=== PATIENT | male | born 1990 | race American Indian/Alaskan Native ===

== ENCOUNTER 2019-02-22 17:35 | Emergency (ER) | payer SELFPAY ==
[2019-02-22 18:55] LABS: Basophils # (Auto) 0.1 K/mm3 (0.0-0.1); Basophils % (Auto) 1.1 % (0.0-1.8); Eosinophils # (Auto) 0.2 K/mm3 (0.0-0.4); Hematocrit 47.2 % (35.5-45.6); Hemoglobin 15.7 gm/dl (11.8-15.2); Lymphocytes # (Auto) 2.1 K/mm3 (1.2-5.4); Lymphocytes % (Auto) 28.5 % (13.4-35.0); Mean Corpuscular HGB Conc 33 % (32-34); Mean Corpuscular Volume 84 fl (84-94); Monocytes # (Auto) 0.9 K/mm3 (0.0-0.8); Platelet Count 237 K/mm3 (140-440); Red Blood Count 5.63 M/mm3 (3.65-5.03); Red Cell Distribution Width 14.5 % (13.2-15.2)
[2019-02-22 19:09] LABS: INR 0.9 (0.87-1.13)
[2019-02-22 19:10] LABS: Partial Thromboplastin Time 26.9 Sec. (24.2-36.6)
[2019-02-22 19:13] LABS: Alanine Aminotransferase 19 units/L (7-56); BUN/Creatinine Ratio 12; Blood Urea Nitrogen 11 mg/dL (9-20); Calcium 9.2 mg/dL (8.4-10.2); Hemolysis Index 6
[2019-02-22] MEDS ORDERED: ALBUTEROL 2.5 MG/3 ML NEBU IH ONE (19:22)
[2019-02-22] MEDS ORDERED: methylPREDNISolone Sod Succinate 125 MG/2 ML INJ IV ONE (19:22)
[2019-02-22] MEDS ORDERED: IPRATROPIUM 0.02% NEBU 2.5 ML IH ONE (19:22)
--- NOTE | 2019-02-22 19:23 | Cat Scan Report ---
CT head/brain wo con INDICATION / CLINICAL INFORMATION: 28 years Male; left sided weakness. TECHNIQUE: Routine CT head without contrast. All CT scans at this location are performed using CT dos e reduction for ALARA by means of automated exposure control. COMPARISON: None. FINDINGS: BRAIN / INTRACRANIAL CONTENTS: The brain demonstrate appropriate attenuation. The ventricular system is within normal limits in size and configuration. There is no CT evidence of acute intracranial hemo rrhage or significant mass effect. ORBITS: No significant abnormality of visualized orbits. SINUSES / MASTOIDS: There is focal opacification involving the right sphenoid and visualized right ma xillary sinuses. CRANIOCERVICAL JUNCTION: No significant abnormality. ADDITIONAL FINDINGS: None. IMPRESSION: 1. There is no CT evidence of acute intracranial process. Signer Name: Bonifacio Blanco MD Signed: 02/22/2019 7:18 PM Workstation Name: [id number]
--- NOTE | 2019-02-22 19:29 | Emergency Department Report ---
ED General Adult HPI - General Chief complaint: Neuro Symptoms/Deficit Stated complaint: DIZZY NUMBNESS Time Seen by Provider: 02/22/19 18:19 Source: EMS Mode of arrival: Stretcher Limitations: No Limitations - History of Present Illness Initial comments: Patient is a 28-year-old male who presents the emergency room with complaints of lightheadedness that began today while at work. 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 He states he then broke out in the cool clammy sweat. Patient states he then felt tingling in his bilateral hands, bilateral feet, and in his tongue. States that for the last 4 days he has had weakness in his left arm and left leg. pt is ambulatory without difficulty. He states that also for the last 2 days he has had chest tightness, shortness of breath, dry cough. Patient states that he has a history of asthma but states he has not been able to afford his medications. He denies any nausea, vomiting, leg swelling, headache, vision changes, recent illness. He denies any past medical history allergies medicatio ns. He denies any family history of cardiac issues or DVT/PE. Severity scale (0 -10): 0 - Related Data Previous Rx's Medication Instructions Recorded Last Taken Type ALBUTEROL Inhaler (OR & NICU) 2 puff IH QID PRN #8.5 gram 02/22/19 Unknown Rx [ProAir HFA Inhaler] Albuterol Sulfate [Albuterol 0.63% 0.63 mg IH TID PRN #1 box 02/22/19 Unknown Rx NEBS] Nebulizer and Compressor [Easy Air 1 each MC TID #1 each 02/22/19 Unknown Rx Compressor Nebulizer] predniSONE [Deltasone] 40 mg PO QDAY 5 Days #10 tab 02/22/19 Unknown Rx Allergies Allergy/AdvReac Type Severity Reaction Status Date / Time No Known Allergies Allergy Unverified 02/22/19 19:08 ED Review of Systems ROS: Stated complaint: DIZZY NUMBNESS Other details as noted in HPI Comment: All other systems reviewed and negative ED Past Medical Hx - Social History Smoking Status: Former Smoker Substance Use Type: None - Medications Home Medications: Home Medications Medication Instructions Recorded Confirmed Last Taken Type ALBUTEROL Inhaler (OR & NICU) 2 puff IH QID PRN #8.5 gram 02/22/19 Unknown Rx [ProAir HFA Inhaler] Albuterol Sulfate [Albuterol 0.63% 0.63 mg IH TID PRN #1 box 02/22/19 Unknown Rx NEBS] Nebulizer and Compressor [Easy Air 1 each MC TID #1 each 02/22/19 Unknown Rx Compressor Nebulizer] predniSONE [Deltasone] 40 mg PO QDAY 5 Days #10 tab 02/22/19 Unknown Rx ED Physical Exam - General Limitations: No Limitations General appearance: alert, in no apparent distress - Head Head exam: Present: atraumatic, normocephalic - Eye Eye exam: Present: normal appearance, PERRL, EOMI - ENT ENT exam: Present: mucous membranes moist - Respiratory Respiratory exam: Present: wheezes (bilaterally), rhonchi (bilaterally, left greater than right). Absent: respiratory distress, rales, stridor, chest wall tenderness, accessory muscle use, decreased breath sounds, prolonged expiratory - Cardiovascular Cardiovascular Exam: Present: regular rate, normal rhythm, normal heart sounds. 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 on the left but the rest of his muscular exam on the LUE is 5/5 strength, 5/5 strength in the LLE, no pronator drift, pt is able to hold up each leg for 30 seconds each without difficulty, sensation intact throughout) - Expanded Neurological Exam Expanded Patient oriented to: Present: person, place, time Speech: Present: fluid speech Cranial nerves: EOM's Intact: Normal, Gag Reflex: Normal Cerebellar function: Finger to Nose: Normal, Heel to [place]: Normal Upper motor neuron: Pronator Drift: Normal Sensory exam: Upper Extremity Light Touch: Normal, Upper Extremity Pin Prick: Normal, Upper Extremity Temperature: Normal, UE 2 Point Discrimination: Normal, Lower Extremity Light Touch: Normal, Lower Extremity Pin Prick: Normal, Lower Extremity Temperature: Normal, LE 2 Point Discrimination: Normal Best Eye Response (June): (4) open spontaneously Best Motor Response (Greene): (6) obeys commands Best Verbal Response (Greene): (5) oriented June Total: 15 - Psychiatric Psychiatric exam: Present: normal affect, normal mood - Skin Skin exam: Present: warm, dry, intact ED Course Vital Signs 02/22/19 02/22/19 02/22/19 18:07 18:16 19:45 Temperature 98.1 F Pulse Rate 69 64 60 Pulse Rate [ Posterior Throughout] Respiratory 21 15 15 Rate Respiratory Rate [Posterior Throughout] Blood Pressure 120/64 124/88 Blood Pressure 121/71 [Right] O2 Sat by Pulse 98 99 Oximetry 02/22/19 02/22/19 02/22/19 20:00 20:38 23:17 Temperature Pulse Rate 77 Pulse Rate [ 61 Posterior Throughout] Respiratory 16 Rate Respiratory 20 Rate [Posterior Throughout] Blood Pressure 124/88 Blood Pressure 133/78 [Right] O2 Sat by Pulse 99 99 Oximetry ED Medical Decision Making - Lab Data Result diagrams: 02/22/19 18:44 02/22/19 18:44 Lab Results 02/22/19 02/22/19 02/22/19 Range/Units 18:44 18:44 18:44 WBC 7.4 (4.5-11.0) K/mm3 RBC 5.63 H (3.65-5.03) M/mm3 Hgb 15.7 H (11.8-15.2) gm/dl Hct 47.2 H (35.5-45.6) % MCV 84 (84-94) fl MCH 28 (28-32) pg MCHC 33 (32-34) % RDW 14.5 (13.2-15.2) % Plt Count 237 (140-440) K/mm3 Lymph % (Auto) 28.5 (13.4-35.0) % Faulkner % (Auto) 12.0 H (0.0-7.3) % Eos % (Auto) 2.0 (0.0-4.3) % Baso % (Auto) 1.1 (0.0-1.8) % Lymph # 2.1 (1.2-5.4) K/mm3 Faulkner # 0.9 H (0.0-0.8) K/mm3 Eos # 0.2 (0.0-0.4) K/mm3 Baso # 0.1 (0.0-0.1) K/mm3 Seg Neutrophils % 56.4 (40.0-70.0) % Seg Neutrophils # 4.2 (1.8-7.7) K/mm3 PT 12.1 L (12.2-14.9) Sec. INR 0.90 (0.87-1.13) APTT 26.9 (24.2-36.6) Sec. D-Dimer 247.48 H (0-234) ng/mlDDU Sodium 139 (137-145) mmol/L Potassium 3.9 (3.6-5.0) mmol/L Chloride 103.3 (98-107) mmol/L Carbon Dioxide 23 (22-30) mmol/L Anion Gap 17 mmol/L BUN 11 (9-20) mg/dL Creatinine 0.9 (0.8-1.5) mg/dL Estimated GFR > 60 ml/min BUN/Creatinine Ratio 12 % Glucose 87 (75-100) mg/dL Calcium 9.2 (8.4-10.2) mg/dL Phosphorus 3.30 (2.5-4.5) mg/dL Magnesium 2.10 (1.7-2.3) mg/dL Total Bilirubin 0.40 (0.1-1.2) mg/dL AST 15 (5-40) units/L ALT 19 (7-56) units/L Alkaline Phosphatase 82 (35-129) units/L Troponin T < 0.010 (0.00-0.029) ng/mL Total Protein 7.1 (6.3-8.2) g/dL Albumin 4.0 (3.9-5) g/dL Albumin/Globulin Ratio 1.3 % - Radiology Data Radiology results: report reviewed CTA CHEST WITH IV CONTRAST INDICATION: CP, SOB, elevated d-dimer. TECHNIQUE: Axial CT images were obtained through the chest after injection of 100 mL Omnipaque 350 IV contrast. 3 plane MIP reconstructions were produced. All CT scans at this location are performed using CT dose reduction for ALARA by means of automated exposure control. COMPARISON: None available. FINDINGS: Pulmonary Arteries: No pulmonary emboli. Lungs: No significant abnormality. Trachea and Bronchi: No significant abnormality. Heart and Pericardium: No significant abnormality. Vasculature: No significant abnormality. Lymphatics: No lymphadenopathy. Additional Findings: None. Upper Abdomen: No acute findings. Skeletal Structures: No significant osseous abnormality. IMPRESSION: 1. No CT evidence for pulmonary embolism. 2. No acute findings. Signer Name: Tarun Sultana MD Signed: 02/22/2019 8:27 PM Workstation Name: [id number] Transcribed By: ALEKSANDAR Dictated By: Tarun Sultana MD Electronically Authenticated By: Tarun Sultana MD Signed Date/Time: 02/22/192026 DD/ 24 TD/TT: CHEST 2 VIEWS INDICATION / CLINICAL INFORMATION: CP, SOB. COMPARISON: None available. FINDINGS: SUPPORT DEVICES: None. HEART / MEDIASTINUM: No significant abnormality. LUNGS / PLEURA: No significant pulmonary or pleural abnormality. .No pneumothorax. ADDITIONAL FINDINGS: No significant additional findings. IMPRESSION: 1. No acute findings. Signer Name: Irwin Mei MD Signed: 02/22/2019 7:29 PM Workstation Name: [id number] Transcribed By: SS Dictated By: Irwin Mei MD Electronically Authenticated By: Irwin Mei MD Signed Date/Time: 02/22/191928 DD/ 28 TD/TT: CT head/brain wo con INDICATION / CLINICAL INFORMATION: 28 years Male; left sided weakness. TECHNIQUE: Routine CT head without contrast. All CT scans at this location are performed using CT dose reduction for ALARA by means of automated exposure control. COMPARISON: None. FINDINGS: BRAIN / INTRACRANIAL CONTENTS: The brain demonstrate appropriate attenuation. The ventricular system is within normal limits in size and configuration. There is no CT evidence of acute intracranial hemorrhage or significant mass effect. ORBITS: No significant abnormality of visualized orbits. SINUSES / MASTOIDS: There is focal opacification involving the right sphenoid and visualized right maxillary sinuses. CRANIOCERVICAL JUNCTION: No significant abnormality. ADDITIONAL FINDINGS: None. IMPRESSION: 1. There is no CT evidence of acute intracranial process. Signer Name: Bonifacio Blanco MD Signed: 02/22/2019 7:18 PM Workstation Name: [id number] Transcribed By: MR Dictated By: Bonifacio Blanco MD Electronically Authenticated By: Bonifacio Blanco MD Signed Date/Time: 02/22/191917 DD/ 14 TD/TT: - Medical Decision Making Patient is a 28-year-old male who presents the emergency room with complaints of lightheadedness that began today while at work. 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 He states he then broke out in the cool clammy sweat. Patient states he then felt tingling in his bilateral hands, bilateral feet, and in his tongue. States that for the last 4 days he has had weakness in his left arm and left leg. pt is ambulatory without difficulty. He states that also for the last 2 days he has had chest tightness, shortness of breath, dry cough. Patient states that he has a history of asthma but states he has not been able to afford his medications. He denies any nausea, vomiting, leg swelling, headache, vision changes, recent illness. He denies any past medical history allergies medications. He denies any family history of cardiac issues or DVT/PE. Vitals are normal. 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 NIH scale is 0. URI score is 0, heart score is 1. lab significant for elevated D-dimer, CTA chest performed and was negative, CXR with no acute process, head CT with no acute process. trop is negative x2. Appears chest tightness and shortness of breath is most likely asthma related patient given nebulizer treatment steroids and breathing significantly improved. Patient stat es he is feeling much better. 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 Patient given prescription for albuterol nebulizer, albuterol inhaler, steroids. advised pt to Please take medication as prescribed. Please follow-up with a primary care doctor, neurologist, and director of recruiting in the next 2-3 days. Return to the emergency room for any new or worsening symptoms. - Differential Diagnosis ACS, PE, mass, CVA, ICH, neuropathy, electrolyte disturbance, asthma Critical care attestation.: If time is entered above; I have spent that time in minutes in the direct care o f this critically ill patient, excluding procedure time. ED Disposition Clinical Impression: Neuropathy, SOB (shortness of breath) Asthma exacerbation Qualifiers: Asthma severity: unspecified severity Asthma persistence: unspecified Qualified Code(s): J45.901 - Unspecified asthma with (acute) exacerbation Chest pain Qualifiers: Chest pain type: unspecified Qualified Code(s): R07.9 - Chest pain, unspecified Disposition: DC- TO HOME OR SELFCARE Is pt being admited?: No Does the pt Need Aspirin: No Condition: Stable Instructions: Chest Pain (ED), Asthma (ED), Peripheral Neuropathy (ED) Additional Instructions: Please take medication as prescribed. Please follow-up with a primary care doctor, neurologist, and director of recruiting in the next 2-3 days. Return to the emergency room for any new or worsening symptoms. Prescriptions: Albuterol Sulfate [Albuterol 0.63% NEBS] 0.63 mg IH TID PRN #1 box PRN Reason: Wheezing predniSONE [Deltasone] 40 mg PO QDAY 5 Days #10 tab Nebulizer and Compressor [Easy Air Compressor Nebulizer] 1 each MC TID #1 each ALBUTEROL Inhaler (OR & NICU) [ProAir HFA Inhaler] 2 puff IH QID PRN #8.5 gram PRN Reason: Shortness Of Breath Referrals: [facility] [Provider Group] - 2-3 Days HOWIE JAMES MD [Staff Physician] - 2-3 Days ERIKA LORENZO MD [Staff Physician] - 2-3 Days Time of Disposition: 22:37 Print Language: SYRIAN
--- NOTE | 2019-02-22 19:34 | XRay Report ---
CHEST 2 VIEWS INDICATION / CLINICAL INFORMATION: CP, SOB. COMPARISON: None available. FINDINGS: SUPPORT DEVICES: None. HEART / MEDIASTINUM: No significant abnormality. LUNGS / PLEURA: No significant pulmonary or pleural abnormality. .No pneumothorax. ADDITIONAL FINDINGS: No significant additional findings. IMPRESSION: 1. No acute findings. Signer Name: Irwin Mei MD Signed: 02/22/2019 7:29 PM Workstation Name: [id number]
--- NOTE | 2019-02-22 20:31 | Cat Scan Report ---
CTA CHEST WITH IV CONTRAST INDICATION: CP, SOB, elevated d-dimer. TECHNIQUE: Axial CT images were obtained through the chest after injection of 100 mL Omnipaque 350 IV contrast. 3 plane MIP reconstructions were produced. All CT scans at this location are performed using CT dose reduction for ALARA by means of automated exposure control. COMPARISON: None available. FINDINGS: Pulmonary Arteries: No pulmonary emboli. Lungs: No significant abnormality. Trachea and Bronchi: No significant abnormality. Heart and Pericardium: No significant abnormality. Vasculature: No significant abnormality. Lymphatics: No lymphadenopathy. Additional Findings: None. Upper Abdomen: No acute findings. Skeletal Structures: No significant osseous abnormality. IMPRESSION: 1. No CT evidence for pulmonary embolism. 2. No acute findings. Signer Name: Tarun Sultana MD Signed: 02/22/2019 8:27 PM Workstation Name: [email or web address]
[2019-02-22 23:18] VITALS: BP 133/78
== END 2019-02-22 23:09 | disposition home or self-care (01) ==
LOC: ED 17:35
DX: J45.901 Unspecified asthma with (acute) exacerbation (principal); R42 Dizziness and giddiness; G62.9 Polyneuropathy, unspecified; Z87.891 Personal history of nicotine dependence; Z98.890 Other specified postprocedural states
CPT/HCPCS: 36415; 70450; 71046; 71275; 80053; 83735; 84100; 84484; 85025; 85379; 85610; 85730; 93005; 93010; 94640; 96374; 99285; J2930; Q9967; 94644